=== PATIENT | female | born 1970 | race Caucasian/White ===

== ENCOUNTER → 2018-08-23 | Day surgery (SDC) | payer OTHER ==
[~2018-08-23] VITALS: Ht 172.7 cm; Wt 90.7 kg
[2018-08-23 09:35] VITALS: BP 120/77
[2018-08-23 14:55] VITALS: BP 117/78
== END | disposition home or self-care (01) ==
LOC: GI 07:57 → OR 12:15 → GI 12:15
PROVIDERS: Internal Medicine Gastroenterology
PROC: 0DBF8ZZ Excision of Right Large Intestine, Via Natural or Artificial Opening Endoscopic (ICD-10-PCS; principal; 2018-08-23 11:30)
PROC: 0DBN8ZZ Excision of Sigmoid Colon, Via Natural or Artificial Opening Endoscopic (ICD-10-PCS; 2018-08-23 11:30)
DX: Z12.11 Encounter for screening for malignant neoplasm of colon (principal); D12.2 Benign neoplasm of ascending colon; K63.5 Polyp of colon; K62.6 Ulcer of anus and rectum; E66.9 Obesity, unspecified; F17.210 Nicotine dependence, cigarettes, uncomplicated; Z80.0 Family history of malignant neoplasm of digestive organs; Z68.31 Body mass index [BMI] 31.0-31.9, adult; Z86.010 Personal history of colon polyps
CPT/HCPCS: 45378; J1200; J1610; J2250; J2310; J3010; J3490